=== PATIENT | male | born 1980 | race Two or more races ===

== ENCOUNTER 2021-11-09 22:32 | Emergency (ER) | payer BC ==
[2021-11-10 00:37] LABS: CARBON DIOXIDE,CO2 26.8 mmol/L (21.0-32.0); POTASSIUM,K 3.8 mmol/L (3.5-5.1)
[2021-11-10] MEDS ORDERED: Clindamycin Phosphate in D5W 300 MG in Premix Bag 1 BAG IV STA ×2 (01:27)
== END 2021-11-10 02:38 | disposition home or self-care (01) ==
LOC: MW.ED 22:32
DX: K04.7 Periapical abscess without sinus (principal)
CPT/HCPCS: 36415; 80053; 85025; 86140; 87040; 96365; 99283; J3490